=== PATIENT | male | born 1985 | race Two or more races ===

== ENCOUNTER → 2016-09-27 21:26 | Emergency (ER) | payer OTHER ==
[2016-09-27 22:22] LABS: Hematocrit 42 % (42-52); Hemoglobin 14.7 g/dl (14.0-18.0); Mean Corpuscular HGB Conc 35 g/dl (31-36); Mean Corpuscular Hemoglobin 31 pg (27-31); Mean Corpuscular Volume 89 fL (80-94); Mean Platelet Volume 9 um3 (7.4-10.4); Red Blood Count 4.72 10^6/ul (4.0-5.4); Red Cell Distribution Width 13 % (10.5-15); White Blood Count 5.7 10^3/ul (3.5-10.8)
--- NOTE | 2016-09-27 22:30 | ED ---
Shena Mckeon Alfonso, scribed for Pato Delgadillo MD on 09/27/16 at 2157 . Altered Mental Status - HPI Summary HPI Summary: This patient is a 31 year old M presenting to [facility] with a chief complaint of hallucinations since all summer. He states I feel like I have done a lot of cocaine but I have not done any and I have a difficult time differentiating between the real world and the dream world. The patient rates the pain 0/10 in severity. Symptoms aggravated and alleviated by nothing. Patient reports paranoia. Patient denies SI and HI. He reports seeing a therapist who recommended that he present to the ED. - History Of Current Complaint Chief Complaint: EDMentalHealth Stated Complaint: MHE Time Seen by Provider: 09/27/16 21:46 Hx Obtained From: Patient Onset/Duration: Still Present Timing: Constant, Lasting Days - "all summer" Severity Initially: Moderate Severity Currently: Moderate Aggravating Factor(s): Nothing Alleviating Factor(s): Nothing - Allergies/Home Medications Allergies/Adverse Reactions: Allergies Allergy/AdvReac Type Severity Reaction Status Date / Time No Known Allergies Allergy Verified 09/27/16 21:36 PMH/Surg Hx/FS Hx/Imm Hx Sensory History: Denies: Hx Deafness Opthamlomology History: Denies: Hx Legally Blind Infectious Disease History: No Infectious Disease History: Denies: Traveled Outside the [place] in Last 30 Days - Family History Known Family History: Positive: Diabetes, Other - schizophrenia - Social History Alcohol Use: Occasionally Hx Substance Use: Yes Substance Use Type: Reports: Cocaine - Occasional Hx Tobacco Use: No Smoking Status (MU): Never Smoked Tobacco Review of Systems Negative: Fever Psychological: Other - Positive hallucinations and paranoia; Negative SI and HI All Other Systems Reviewed And Are Negative: Yes Physical Exam Triage Information Reviewed: Yes Vital Signs On Initial Exam: Initial Vitals Temp Pulse Resp BP Pulse Ox 98.1 F 83 20 164/100 99 09/27/16 21:28 09/27/16 21:28 09/27/16 21:28 09/27/16 21:28 09/27/16 21:28 Vital Signs Reviewed: Yes Appearance: Positive: Well-Appearing, No Pain Distress Skin: Positive: Warm Head/Face: Positive: Normal Head/Face Inspection Eyes: Positive: ROSALINA ENT: Positive: Hearing grossly normal Neck: Positive: Supple Respiratory/Lung Sounds: Positive: Breath Sounds Present Cardiovascular: Positive: RRR Abdomen Description: Positive: Nontender, Soft Musculoskeletal: Positive: Strength/ROM Intact Neurological: Positive: Alert, Oriented to Person Place, Time Psychiatric: Positive: Affect/Mood Appropriate Diagnostics - Vital Signs Vital Signs Temp Pulse Resp BP Pulse Ox 09/27/16 21:28 98.1 F 83 20 164/100 99 - Laboratory Result Diagrams: 09/27/16 22:10 09/27/16 22:10 Lab Statement: Any lab studies that have been ordered have been reviewed, and results considered in the medical decision making process. Altered Mental Statu Course/Dx - Diagnoses Discharge Diagnoses: Psychotic disorder Discharge - Discharge Plan Condition: Fair Disposition: HOME Patient Education Materials: Brief Psychotic Disorder (ED) [facility]Primary [facility] Provider[facility] - As Soon As Possible (Please contact [facility] services at [facility], at your earliest convenience for continued support. [address] [place] [address] First appointment: The first step to getting care is to schedule a brief phone assessment so we can learn about your needs. Phone assessments involve a 10- to 15-minute conversation with a counselor who helps determine the urgency of your concerns, and how we might best help you. To schedule your phone appointment, please log in to [facility] and select Appointments. Or call us during business hours at [phone] (press 3 for appointments). ) The documentation as recorded by the Shena navarro Alfonso accurately reflects the service I personally performed and the decisions made by me, Pato Delgadillo MD.
[2016-09-27 22:32] LABS: ALT 6 U/L (7-52); AST 12 U/L (13-39); Albumin 4.7 g/dL (3.2-5.2); Alkaline Phosphatase 37 U/L (34-104); Anion Gap 9 mmol/L (2-11); BUN/Creatinine Ratio 10.7 (8-20); Blood Urea Nitrogen 9 mg/dL (6-24); CO2 Carbon Dioxide 24 mmol/L (22-32); Calcium 9.5 mg/dL (8.6-10.3); Chloride 100 mmol/L (101-111); EGFR African American 138.9 (>60); Glucose 96 mg/dL (70-100); Potassium 3.6 mmol/L (3.5-5.0); Sodium 133 mmol/L (133-145); Total Protein 7.7 g/dL (6.4-8.9)
[2016-09-27 22:55] LABS: Acetaminophen < 15 mcg/mL; Alcohol < 10 mg/dL (<10); Salicylate < 2.50 mg/dL (<30)
[2016-09-27 23:05] LABS: TSH (Thyroid Stimulating Horm) 1.57 mcIU/mL (0.34-5.60)
[2016-09-27 23:57] VITALS: BP 130/86
== END | disposition home or self-care (01) ==
LOC: ED 21:26
DX: F23 Brief psychotic disorder (principal); R44.3 Hallucinations, unspecified; F22 Delusional disorders
CPT/HCPCS: 36415; 80053; 80320; 80329; 84443; 85025; 99284; G0480